=== PATIENT | female | born 1960 | race Caucasian/White ===

== ENCOUNTER 2022-05-10 11:52 | Outpatient (REF) | payer BC, SELFPAY | END 2022-05-10 11:53 | disposition home or self-care (01) | LOC: HO.MANLDS 11:52 | PROVIDERS: Visit Provider Physician Assistant | DX: K04.7 Periapical abscess without sinus (principal) | CPT/HCPCS: 87071 ==

== ENCOUNTER 2022-07-21 14:16 | Outpatient (REF) | payer BC, SELFPAY | END 2022-07-21 14:17 | disposition home or self-care (01) | LOC: HO.LNP 14:16 | PROVIDERS: Visit Provider Physician Assistant | DX: B48.8 Other specified mycoses (principal) | CPT/HCPCS: 87070; 87102; 87205 ==